=== PATIENT | female | born 1970 | race Caucasian/White ===

== ENCOUNTER → 2016-12-16 | Outpatient (CLI) | payer OTHER | LOC: RAD 01:54 | DX: N63 Unspecified lump in breast (principal) ==

== ENCOUNTER → 2016-12-17 | Outpatient (CLI) | payer OTHER ==
--- NOTE | ~2016-12-17 | EXE ---
[facility] [place] [address] STRESS ECHOCARDIOGRAM Name: LETTYLINDA L Room #: [facility] [id number] Admission: 12/17/16 Attend Phys: Paola Shirley DNP Discharge: Date of : 70 Date of Service: 12/17/16 1850 Report #: [id number] THIS REPORT FOR: //name// APPROVED REPORT Exam: Stress Echocardiogram Indication: Short of breath Patient Location: Out-Patient Stress Nurse: Addie Olguin RN Status: routine HR: 65 bpm Medical History Allergies: Penicillin Procedure The patient underwent an Exercise Stress Test using the Ben Protocol. Blood pressure, heart rate, and EKG were monitored. An Echocardiogram was performed by software test technician in four stages in quad fashion. At peak stress, four selected images were obtained and placed side by side with resting images for comparison. Stress Test Details Stress Test: Exercise stress testing was performed using a Ben protocol. HR Resting HR: 65 bpm Max Heart Rate (APMHR): 175 bpm Max HR Achieved: 179 bpm Target HR (85% APMHR): 148 bpm % of APMHR: 102 Recovery HR: 94 bpm HR response to stress: Normal HR response to stress BP Resting BP: 125/73 mmHg Max BP: 162/84 mmHg Recovery BP: 118/80 mmHg ECG Resting ECG: Sinus Rhythm Stress ECG: Sinus Rhythm Recovery ECG: Sinus Rhythm Clinical Reason for Termination: moderate fatigue, short of breath [facility] [address] [place] [address] STRESS ECHOCARDIOGRAM Name: LINDA SAENZ Room #: [facility]#: [id number] Admission: 12/17/16 Attend Phys: Paola Shirley DNP Discharge: Date of : 70 Date of Service: 12/17/16 1850 Report #: [id number] Stress Symptoms: Dyspnea Exercise duration: 8 min 56 sec Highest Stage Achieved: Stage 3: 3.4 mph at 14% grade. Exercise capacity: 10.10 METs Stress ECG Conclusion 1, SUBJECTIVELY NEGATIVE FOR ISCHEMIA 2. ELECTROCARDIOGRAPHICALLY NEGATIVE FOR ISCHEMIA 3..[employer] Pre-Stress Echo The resting Echocardiogram showed normal left ventricular contractility with an estimated Ejection Fraction of about 55-60%. Trace TR, trace MR. Normal wall motion in all segments on baseline images. Post-Stress Echo The stress Echocardiogram showed normal left ventricular contractility with an estimated Ejection Fraction of about 65-70%. Normal augmentation of wall motion in all segments on post stress images. Clinical No clinical or ECG evidence for ischemia. Conclusion Clinical Response: Non-ischemic Exercise Capacity: Below Average Stress ECG Response: Non-ischemic Stress Echo Images: Non-ischemic 1. LOW RISK STUDY Other Information Study Quality: Adequate <Conclusion> 1. LOW RISK STUDY <ELECTRONICALLY SIGNED> By: Walter Bustillos MD 12/17/161849 49 49 Walter Bustillos MD /INF
== END ==
LOC: CV
DX: R06.02 Shortness of breath (principal)

== ENCOUNTER → 2017-07-02 | Outpatient (CLI) | payer OTHER | LOC: ULTRA 01:56 | DX: N63.10 Unspecified lump in the right breast, unspecified quadrant (principal); N63.20 Unspecified lump in the left breast, unspecified quadrant ==

== ENCOUNTER → 2019-01-29 | Outpatient (CLI) | payer OTHER | LOC: BC 14:42 → RAD 02-03 10:45 | DX: Z12.31 Encounter for screening mammogram for malignant neoplasm of breast (principal) ==

== ENCOUNTER → 2019-02-09 | Outpatient (CLI) | payer OTHER | LOC: CAT 13:35 | DX: Z13.6 Encounter for screening for cardiovascular disorders (principal); E78.00 Pure hypercholesterolemia, unspecified; I25.10 Atherosclerotic heart disease of native coronary artery without angina pectoris ==